=== PATIENT | female | born 1945 | race Caucasian/White ===

== ENCOUNTER 2017-06-27 12:46 | Outpatient (CLI) | payer MEDICARE, OTHER ==
--- NOTE | 2017-06-27 15:44 | ULT ---
FOCUSED ULTRASOUND OF THE LEFT BREAST: Date: 06/27/17 COMPARISON: None. HISTORY: Palpable superficial lesion at the 10 o'clock position of the left breast. The patient reports that this palpable abnormality has been present for a year and the patient has expressed it once in the p ast yielding thick material. FINDINGS: Focused ultrasound in the area of palpable concern demonstrates a subcutaneous lesion at the junctio n of the dermis and epidermis measuring approximately 1.1 x 0.7 x 1.1 cm. This lesion demonstrates i ncreased through-transmission suggesting a degree of cystic characteristics. However, it does demons trate internal echogenicity, but no internal blood flow. The history and sonographic appearance are most consistent with a sebaceous cyst. No solid mass or concerning shadowing. IMPRESSION: BIRADS Category 2 - benign findings. Recommend annual screening mammography. Area of palpable concern correlates with a complex cystic lesion on the basis of sebaceous cyst. POS: ARIELA
--- NOTE | 2017-06-27 16:38 | MMO ---
BILATERAL DIAGNOSTIC MAMMOGRAM: Date: 06/27/17 COMPARISON: None. HISTORY: New palpable abnormality in the medial aspect of the left breast. FINDINGS: This patient's mammogram was interpreted with the assistance of computer-aided detection. The breast parenchyma is heterogeneously dense. Benign calcification noted bilaterally. There is an oval subcutaneous superficial mass within the medial aspect of the left breast on CC adriana ging measuring 1.2 cm. Focused ultrasound demonstrates a complex cyst in this region, most consistent with a sebaceous cyst . No concerning microcalcification, mass, or distortion seen. IMPRESSION: BIRADS 2: Benign Finding(s) Annual screening mammography recommended. The area of palpable concern on the left correlates with a sebaceous cyst. Clinical follow-up recomm ended. POS: ARIELA
== END 2017-06-27 12:47 | disposition home or self-care (01) ==
LOC: MAMMO 12:46
PROVIDERS: ATTEND Family Medicine
DX: N60.89 Other benign mammary dysplasias of unspecified breast (principal); R92.1 Mammographic calcification found on diagnostic imaging of breast; N60.02 Solitary cyst of left breast
CPT/HCPCS: 76642; G0204; 77066

== ENCOUNTER 2019-07-10 09:56 | Outpatient (CLI) | payer MEDICARE, OTHER ==
--- NOTE | 2019-07-23 07:47 | MMO ---
Bilateral MAMMO Bilat Screen [facility]. CLINICAL HISTORY: Patient is 73 years old and is seen for screening. The patient has the following family history of breast cancer: maternal aunt, malignant (generic). The patient has a history of thyroid cancer. The patient has a history of left Excisional Biopsy in 1987 - benign. VIEWS: The views performed were: bilateral craniocaudal with tomosynthesis and bilateral mediolateral oblique with tomosynthesis. FILMS COMPARED: The present examination has been compared to prior imaging studies performed at [facility] on 07/04/2018, and at [facility] on 09/24/2007 and 06/27/2017. This study has been interpreted with the assistance of computer-aided detection. MAMMOGRAM FINDINGS: The breasts are heterogeneously dense, which could obscure a lesion on mammography. Finding 1: There are stable benign appearing calcifications seen in both breasts. There are also vascular calcifications. Finding 2: There is a stable mass seen in the inner region of the left breast. There are no suspicious masses, suspicious calcifications, or new areas of architectural distortion. IMPRESSION: THERE IS NO MAMMOGRAPHIC EVIDENCE OF MALIGNANCY. A ROUTINE FOLLOW-UP MAMMOGRAM IN 1 YEAR IS RECOMMENDED. THE RESULTS OF THIS EXAM WERE SENT TO THE PATIENT. ACR BI-RADS Category 2 - Benign finding MAMMOGRAPHY NOTE: 1. A negative mammogram report should not delay a biopsy if a dominant of clinically suspicious mass is present. 2. Approximately 10% to 15% of breast cancers are not detected by mammography. 3. Adenosis and dense breasts may obscure an underlying neoplasm. Reported by: ANGELIQUE KATZ MD Electonically Signed: [id number]
== END 2019-07-10 09:57 | disposition home or self-care (01) ==
LOC: BICMAMMO 09:56
PROVIDERS: ATTEND Family Medicine
DX: Z12.31 Encounter for screening mammogram for malignant neoplasm of breast (principal); Z85.850 Personal history of malignant neoplasm of thyroid; Z91.89 Other specified personal risk factors, not elsewhere classified; Z80.3 Family history of malignant neoplasm of breast
CPT/HCPCS: 77063; 77067

== ENCOUNTER 2020-07-29 09:01 | Outpatient (CLI) | payer MEDICARE, OTHER ==
--- NOTE | 2020-07-29 09:51 | MMO ---
Bilateral MAMMO Bilat Screen [facility]. CLINICAL HISTORY: Patient is 74 years old and is seen for screening. The patient has the following family history of breast cancer: maternal aunt, malignant (generic). The patient has a history of thyroid cancer. The patient has a history of left Excisional Biopsy in 1987 - benign. VIEWS: The views performed were: bilateral craniocaudal with tomosynthesis; bilateral mediolateral oblique with tomosynthesis; and right exaggerated craniocaudal. FILMS COMPARED: The present examination has been compared to prior imaging studies performed at [facility] on 07/04/2018, and at [facility] on 09/24/2007, 06/27/2017 and 07/10/2019. This study has been interpreted with the assistance of computer-aided detection. MAMMOGRAM FINDINGS: The breasts are heterogeneously dense, which could obscure a lesion on mammography. There are stable benign appearing calcifications seen in both breasts. There are also vascular calcifications. Nodularity is stable. There are no suspicious masses, suspicious calcifications, or new areas of architectural distortion. IMPRESSION: THERE IS NO MAMMOGRAPHIC EVIDENCE OF MALIGNANCY. A ROUTINE FOLLOW-UP MAMMOGRAM IN 1 YEAR IS RECOMMENDED. THE RESULTS OF THIS EXAM WERE SENT TO THE PATIENT. ACR BI-RADS Category 2 - Benign finding MAMMOGRAPHY NOTE: 1. A negative mammogram report should not delay a biopsy if a dominant of clinically suspicious mass is present. 2. Approximately 10% to 15% of breast cancers are not detected by mammography. 3. Adenosis and dense breasts may obscure an underlying neoplasm. Reported by: ANGELIQUE KATZ MD Electonically Signed: [id number]
--- NOTE | 2020-07-29 09:58 | BD ---
EXAM: DEXA bone density examination HISTORY: 74-year-old postmenopausal female for screening COMPARISON: None FINDINGS: Right femoral neck--bone mineral density0.751; T score -0.9 Total proximal right femur--bone mineral density 0.967; T score 0.2 Left femoral neck--bone mineral density0.771; T score -0.7 Total proximal left femur--bone mineral density 1.115; T score 1.4 IMPRESSION: Normal bone density.
== END 2020-07-29 09:02 | disposition home or self-care (01) ==
LOC: BICMAMMO 09:01
PROVIDERS: ATTEND Family Medicine
DX: Z12.31 Encounter for screening mammogram for malignant neoplasm of breast (principal); Z13.820 Encounter for screening for osteoporosis; Z78.0 Asymptomatic menopausal state; Z80.3 Family history of malignant neoplasm of breast; Z85.850 Personal history of malignant neoplasm of thyroid; Z91.89 Other specified personal risk factors, not elsewhere classified
CPT/HCPCS: 77063; 77067; 77080

== ENCOUNTER 2020-12-14 08:42 | Outpatient (CLI) | payer MEDICARE, OTHER | END 2020-12-14 08:43 | disposition home or self-care (01) | LOC: BICCT 08:42 | PROVIDERS: ATTEND Podiatrist | DX: S82.892A Other fracture of left lower leg, initial encounter for closed fracture (principal) ==

== ENCOUNTER 2023-04-27 09:18 | Outpatient (CLI) | payer MEDICARE, OTHER ==
[2023-04-27 11:02] LABS: Hematocrit 40.3 % (34.9-44.5); Mean Corpuscular HGB CONC 32.3 g/dL (32.0-36.0); Mean Corpuscular Hemoglobin 28.3 pg (27.0-33.0); Mean Corpuscular Volume 87.8 fl (81.6-98.3); Mean Platelet Volume 11.9 fl (7.4-10.4); Platelet Count 160 10x3/uL (150-450); RBC Distribution Width 13.7 % (11.5-14.5); Red Blood Cell (RBC) Count 4.59 10x6/uL (3.90-5.03); White Blood Cell (WBC) Count 4.3 10x3/uL (3.5-10.5)
[2023-04-27 11:28] LABS: Anion Gap 13 mmol/L (10-20); BUN (Urea Nitrogen) 11 mg/dL (9.8-20.1); Calc. Creatinine Clearance 0 mL/min (70-130); Carbon Dioxide 26 mmol/L (23-31); Chloride 107 mmol/L (98-107); Estimated GFR 68; Glucose 99 mg/dL (83-110); Sodium 142 mmol/L (136-145)
== END 2023-04-27 09:19 | disposition home or self-care (01) ==
LOC: LABBT 09:18
PROVIDERS: ATTEND Neurological Surgery
DX: Z01.818 Encounter for other preprocedural examination (principal); M54.50 Low back pain, unspecified
CPT/HCPCS: 80048; 85027; 93005; 93010

== ENCOUNTER 2023-05-01 05:27 | Day surgery (SDC) | payer MEDICARE, OTHER ==
[2023-04-27 10:35] VITALS: BMI 27.6
[2023-05-01] MEDS ORDERED: LevoFLOXacin 500 mg/D5W 100 ML BAG ONE (06:15)
[2023-05-01] MEDS ORDERED: Clindamycin/D5W 900 mg/50 ml Premix Bag ONE (06:15)
[2023-05-01] MEDS ORDERED: fentaNYL PF 100 MCG/2 ML SYRINGE ONE (06:27)
[2023-05-01] MEDS ORDERED: EPINEPHrine 1 MG/ML AMP ONE (06:44)
[2023-05-01] MEDS ORDERED: Thrombin 5000 UNITS/5 ML VIAL ONE (06:44)
[2023-05-01] MEDS ORDERED: Bupivacaine PF 0.5% 30 ML VIAL ONE (06:44)
[2023-05-01] MEDS ORDERED: HYDROmorphone 0.5 MG/0.5 ML SYRINGE ONE (07:02)
[2023-05-01] MEDS ORDERED: Rocuronium Bromide 10 MG/ML (10ML VIAL) ONE (07:06)
[2023-05-01] MEDS ORDERED: Lidocaine 1% PF 5 ML VIAL ONE (07:06)
[2023-05-01] MEDS ORDERED: PROPOFOL 200 MG/20 ML VIAL ONE (07:06)
[2023-05-01] MEDS ORDERED: ePHEDrine Sulfate 50 MG/10 ML VIAL ONE (07:06)
[2023-05-01] MEDS ORDERED: Ondansetron PF 4 MG/2 ML Vial ONE (07:06)
[2023-05-01] MEDS ORDERED: Dexamethasone 20 MG/5 ML VIAL ONE (07:06)
[2023-05-01] MEDS ORDERED: SUGAMMADEX SODIUM 200 MG/2 ML VIAL ONE (07:38)
[2023-05-01] MEDS ORDERED: HYDROcodone/Acetaminophen 7.5/325 mg Tablet ONE (11:32)
== END 2023-05-01 11:55 | disposition home or self-care (01) ==
LOC: SDC 05:27
PROVIDERS: ATTEND Neurological Surgery
PROC: 00PU0MZ Removal of Neurostimulator Lead from Spinal Canal, Open Approach (ICD-10-PCS; principal; 2023-05-01)
PROC: 00PV0MZ Removal of Neurostimulator Lead from Spinal Cord, Open Approach (ICD-10-PCS; 2023-05-01)
PROC: 0JH70BZ Insertion of Single Array Stimulator Generator into Back Subcutaneous Tissue and Fascia, Open Approach (ICD-10-PCS; 2023-05-01)
PROC: 00HV0MZ Insertion of Neurostimulator Lead into Spinal Cord, Open Approach (ICD-10-PCS; 2023-05-01)
DX: T85.112A Breakdown (mechanical) of implanted electronic neurostimulator of spinal cord electrode (lead), initial encounter (principal); G89.4 Chronic pain syndrome; M54.50 Low back pain, unspecified; Z79.82 Long term (current) use of aspirin; Z79.899 Other long term (current) drug therapy; Z88.7 Allergy status to serum and vaccine; Z88.0 Allergy status to penicillin; Z88.1 Allergy status to other antibiotic agents; Z88.8 Allergy status to other drugs, medicaments and biological substances; Z91.09 Other allergy status, other than to drugs and biological substances; Z90.89 Acquired absence of other organs
CPT/HCPCS: 63664; 63688; C1713; C1778; C1787; C1820; L8689; J0171; J1100; J1170; J1956; J2405; J2704; J3490; S0020